=== PATIENT | male | born 1940 | race Caucasian/White ===

== ENCOUNTER 2018-08-30 13:09 | Outpatient (CLI) | payer MEDICARE ==
--- NOTE | 2018-08-30 15:23 | RAD ---
CHEST TWO VIEWS: History: Displacement of atrial pacemaker leads, T82.120A. Pacemaker not working correctly. FINDINGS: Heart size is within normal limits. The lungs are clear. No confluent pneumonia, overt edema, or pleu ral effusion. Stable biapical pleural thickening. Stable appearing left transvenous pacemaker. There is prominent motion artifact on the lateral view. IMPRESSION: No significant acute intrathoracic disease. Stable appearance from 05-27-18. POS: KARIS
== END 2018-08-30 13:10 | disposition home or self-care (01) ==
LOC: BICRAD 13:09
PROVIDERS: ATTEND Internal Medicine Cardiovascular Disease
DX: T82.120A Displacement of cardiac electrode, initial encounter (principal)
CPT/HCPCS: 71046

== ENCOUNTER 2018-08-31 08:11 | Day surgery (SDC) | payer MEDICARE ==
[2018-08-31 09:11] LABS: Hemoglobin 14.2 g/dL (14.0-18.0); Platelet Count 159 thou/uL (130-400)
[2018-08-31] MEDS ORDERED: Fentanyl 100 MCG/2 ML VIAL ONE (09:37)
[2018-08-31] MEDS ORDERED: Midazolam HCl 2 mg/2 ml Vial ONE (09:37)
[2018-08-31] MEDS ORDERED: CEFAZOLIN 1 GM VIAL ONE ×2 (09:44→09:45)
[2018-08-31] MEDS ORDERED: Gentamicin 80 MG/2 ML VIAL ONE (09:45)
--- NOTE | 2018-08-31 16:03 | EKG ---
Test Reason : POST PACEMAKER INSER Blood Pressure : / mmHG Vent. Rate : 063 BPM Atrial Rate : 063 BPM P-R Int : 178 ms QRS Dur : 152 ms QT Int : 472 ms P-R-T Axes : 062 -45 068 degrees QTc Int : 483 ms Electronic ventricular pacemaker No previous ECGs available Confirmed by DR. Mathieu OCONNELL MD ([id number]) on 08/31/2018 4:02:40 PM Referred By: HOLLY Confirmed By:DR. Mathieu OCONNELL MD
--- NOTE | 2018-08-31 20:59 | DIS ---
DATE OF ADMISSION: 08/31/2018 DATE OF DISCHARGE: 08/31/2018 ADMITTING DIAGNOSES: He was seen in the outpatient setting today to undergo a pacemaker lead revision. The admitting diagnosis was pacemaker lead malfunction. His other diagnosis include history of sick sinus syndrome for which he underwent pacemaker insertion in the past. He also has a history of hypertension, history of hyperlipidemia, history of coronary artery disease, bilateral carotid artery plaque. DISCHARGE DIAGNOSES: He was seen in the outpatient setting today to undergo a pacemaker lead revision. The admitting diagnosis was pacemaker lead malfunction. His other diagnosis include history of sick sinus syndrome for which he underwent pacemaker insertion in the past. He also has a history of hypertension, history of hyperlipidemia, history of coronary artery disease, bilateral carotid artery plaque. PROCEDURE: In the hospital include atrial lead revision. He is to follow up with me in 7 to 10 days in the office for wound check. He will continue his present medications which include: 1. Crestor 10 mg a day. 2. Norvasc 5 mg a day. 3. Aspirin 325 mg a day. 4. Toprol-XL 100 mg daily. 5. Losartan/hydrochlorothiazide 100/25 once a day. 6. Crestor 10 mg a day. HOSPITAL COURSE: This is a very pleasant 78-year-old gentleman, who underwent pacemaker insertion on 05/27/2018. On routine evaluation yesterday in the office, was found to have atrial lead malfunction. Chest x-ray indicated the atrial lead had fallen down into the right ventricle just at the level of tricuspid valve. He was advised to undergo pacemaker lead revision. This was performed today without difficulties or complications. The patient will be discharged home if remained stable. He was given 2 mg of IV Versed for the procedure. We will await for the anesthesia to reverse prior to sending the patient home. I will see him back in the office as noted in 7 to 10 days. Job ID: [id number]
--- NOTE | 2018-09-01 09:58 | CCL ---
CARDIOLOGY PROCEDURE NOTE: DATE OF PROCEDURE: 08/31/18 PROCEDURE: Pacemaker lead revision. INDICATION FOR PROCEDURE: 78-year-old gentleman who underwent pacemaker insertion due to sick sinus syndrome. He was implanted with the device on 05/27/18. On routine evaluation of the pacemaker yesterday, he was noted to have a problem of the atrial lead with oversensing. It was felt to be a pacemaker lead malfunction. Chest x -ray showed that the atrial lead had become dislodged and was lying just at the level of the tricuspi d valve. He was advised to undergo pacemaker lead revision. DESCRIPTION OF PROCEDURE: The patient was taken to the cardiac cardiac catheterization technician, where the procedure was performed today without diffic ulties or complications. The full dictated note is already in the chart. He was prepped and draped in the usual sterile fashion. The old pocket was opened using careful dissection. The atrial lead remov ed from the pacemaker generator and a J-wire was placed, and the lead was easily repositioned back in to the right atrium. Thresholds were obtained and found to have normal sensing and normal thresholds. The pacemaker lead was then reattached to the pacemaker. Also interrogated the ventricular lead, whi ch also was found to have normal sensing and normal thresholds. The pocket was then irrigated using c opious amounts of antibiotic solution. The pacemaker generator with the leads was then placed back in to the pocket and the pocket was closed in three layers after copious antibiotic solution had irrigat ed the pocket. There were no difficulties or complications encountered. The patient tolerated the pro cedure well. The same leads were used and the same generator was placed back into the pocket.
== END 2018-08-31 12:10 | disposition home or self-care (01) ==
LOC: CCL 08:11
PROVIDERS: ATTEND Internal Medicine Cardiovascular Disease
PROC: 02WA3MZ Revision of Cardiac Lead in Heart, Percutaneous Approach (ICD-10-PCS; principal; 2018-08-31)
DX: T82.120A Displacement of cardiac electrode, initial encounter (principal); I49.5 Sick sinus syndrome; I25.10 Atherosclerotic heart disease of native coronary artery without angina pectoris; I25.83 Coronary atherosclerosis due to lipid rich plaque; I65.23 Occlusion and stenosis of bilateral carotid arteries; M19.90 Unspecified osteoarthritis, unspecified site; E78.5 Hyperlipidemia, unspecified; I10 Essential (primary) hypertension; E78.2 Mixed hyperlipidemia; E66.9 Obesity, unspecified; Z68.35 Body mass index [BMI] 35.0-35.9, adult; Z87.891 Personal history of nicotine dependence; Z79.82 Long term (current) use of aspirin; Z79.899 Other long term (current) drug therapy; Z95.0 Presence of cardiac pacemaker
CPT/HCPCS: 33215; 85014; 85018; 85049; 93005; 93010; 99152; 99153; J0690; J1580; J2250; J3010

== ENCOUNTER 2019-05-03 06:00 | Day surgery (SDC) | payer MEDICARE ==
[2019-05-02 15:40] VITALS: BMI 34.9
[2019-05-03] MEDS ORDERED: Lidocaine 1% (PF) 30 ML VIAL ONE (06:53)
[2019-05-03 07:28] LABS: ALT (SGPT) 14 U/L (8-55); AST (SGOT) 20 U/L (5-34); Albumin 3.9 g/dL (3.4-4.8); Alkaline Phosphatase 67 U/L (40-110); Anion Gap 14 mmol/L (10-20); BUN (Urea Nitrogen) 34 mg/dL (8.4-25.7); Bilirubin, Total 0.6 mg/dL (0.2-1.2); Calc. Creatinine Clearance 56 mL/min (70-130); Calcium 9.1 mg/dL (7.8-10.44); Carbon Dioxide 23 mmol/L (23-31); Chloride 105 mmol/L (98-107); Estimated GFR-MDRD 38; Globulin 2.8 g/dL (2.4-3.5); Glucose 103 mg/dL (83-110); Potassium 3.8 mmol/L (3.5-5.1); Protein, Total 6.7 g/dL (5.8-8.1); Sodium 138 mmol/L (136-145)
[2019-05-03] MEDS ORDERED: Nitroglycerin 100MG/250ML BOT 250 ML ONE (07:37)
[2019-05-03] MEDS ORDERED: Heparin 10,000 UNITS/1 ML VIAL ONE (07:38)
[2019-05-03] MEDS ORDERED: Verapamil 5 MG/2 ML VIAL ONE (07:38)
[2019-05-03] MEDS ORDERED: Midazolam HCl 2 mg/2 ml Vial ONE (07:38)
[2019-05-03] MEDS ORDERED: Morphine 2 MG/ML SYRINGE ONE ×2 (08:57→09:32)
--- NOTE | 2019-05-03 20:05 | EKG ---
Test Reason : POST PTCA/STENTS X2 Blood Pressure : / mmHG Vent. Rate : 060 BPM Atrial Rate : 061 BPM P-R Int : 000 ms QRS Dur : 154 ms QT Int : 476 ms P-R-T Axes : 000 -48 084 degrees QTc Int : 476 ms AV sequential or dual chamber electronic pacemaker When compared with ECG of 31-AUG-2018 11:55, Vent. rate has decreased BY 3 BPM Confirmed by KOURTNEY KERR, SRaji ([id number]) on 05/03/2019 8:05:25 PM Referred By: HOLLY Confirmed By:DR. Mathieu OCONNELL MD
[2019-05-03] MEDS ORDERED: Iopamidol 370 76% 50 ML VIAL FS ONE (20:23)
[2019-05-03] MEDS ORDERED: Iopamidol 370 76% 100 ML VIAL ONE (20:23)
--- NOTE | 2019-05-03 22:50 | DIS ---
DATE OF ADMISSION: 05/03/2019 DATE OF DISCHARGE: 05/03/2019 INDICATION FOR PROCEDURE: 79-year-old gentleman, who was found to have known coronary artery disease. He, on a previous cardiac catheterization, was found to have severe stenosis of 90% in the left anterior descending artery with heavy calcifications. He also has history of chronic kidney disease. Creatinine was approaching 2 at the time of the cardiac catheterization. He was advised to undergo a staged procedure to the left anterior descending artery with angioplasty and stent placement. He was brought to the hospital in a fasting state. He was prepped and draped in sterile fashion. Using a right radial artery approach, 5-Swazi introducer sheath was placed into the right radial artery. This also would accommodate a 6-Swazi guide using a 6-Swazi FL 3.5 catheter. It was advanced to the ostia in the left main coronary artery. The patient was given 2500 units of heparin and the cocktail for the radial approach, also was given additional 4000 units of heparin for a total of 6500 units of heparin, ACT was over 250. Proceeded with the procedure. The guide catheter was placed using a floppy wire. This was passed down the distal left anterior descending artery, where we used in the end, a 2.5 x 12 mm balloon as well as a 2.5 mm stent to the distal left anterior descending artery, a 2.5 x 12 mm stent to the mid left anterior descending diagonal branch. The mid left anterior descending artery stent was dilated up to 2.88 mm and the distal stent was dilated up to 2.77 mm. There was no residual significant stenosis noted. He did have heavy calcifications, however. Otherwise, he did very well during the procedure and he will be discharged later today. DISCHARGE MEDICATIONS: His discharge medications will include: 1. Brilinta, which he was given during the procedure, 180 mg. He will be discharged on 90 mg b.i.d. 2. He will continue on his other medications which include aspirin. We will decrease this to 81 mg a day. 3. Amlodipine 5 mg a day. 4. Rosuvastatin 10 mg a day. 5. Toprol-XL 50 mg once a day. 6. once a day and other p.r.n. medications as needed. His other discharge diagnoses include osteoarthritis, obesity, chronic back pain, hyperlipidemia, hypertension, status post pacemaker insertion. He also has a history of bilateral carotid artery stenosis of less than 50%. His followup will be with me in approximately 1 month in the office. He will continue his routine follow up with the primary care physician. I will also obtain another repeat chem-7 for evaluation of his renal function in the next few days. Job ID: [id number]
== END 2019-05-03 15:01 | disposition home or self-care (01) ==
LOC: CCL 06:00
PROVIDERS: ATTEND Internal Medicine Cardiovascular Disease
PROC: 027135Z Dilation of Coronary Artery, Two Arteries with Two Drug-eluting Intraluminal Devices, Percutaneous Approach (ICD-10-PCS; principal; 2019-05-03)
DX: I25.10 Atherosclerotic heart disease of native coronary artery without angina pectoris (principal); I12.9 Hypertensive chronic kidney disease with stage 1 through stage 4 chronic kidney disease, or unspecified chronic kidney disease; N18.9 Chronic kidney disease, unspecified; E78.2 Mixed hyperlipidemia; M54.9 Dorsalgia, unspecified; G89.29 Other chronic pain; M19.90 Unspecified osteoarthritis, unspecified site; E66.9 Obesity, unspecified; Z79.82 Long term (current) use of aspirin; Z79.899 Other long term (current) drug therapy; Z87.891 Personal history of nicotine dependence; Z95.0 Presence of cardiac pacemaker; Z86.79 Personal history of other diseases of the circulatory system; Z68.35 Body mass index [BMI] 35.0-35.9, adult
CPT/HCPCS: 80053; 85347; 92928; 93005; 93798; 99152; 99153; C1769; C1874; C1887; C9600; J1644; J2001; J2250; J2270; Q9967

== ENCOUNTER 2020-11-05 16:53 | Outpatient (CLI) | payer MEDICARE ==
[2020-11-05 19:09] LABS: Hemoglobin 13.8 g/dL (13.5-17.5); Mean Corpuscular HGB CONC 31.9 g/dL (32.0-36.0); Mean Corpuscular Hemoglobin 29.4 pg (27.0-33.0); Mean Corpuscular Volume 92.3 fl (81.2-95.1); Mean Platelet Volume 10.4 fl (7.4-10.4); Platelet Count 223 10x3/uL (150-450); RBC Distribution Width 14.6 % (11.5-14.5); Red Blood Cell (RBC) Count 4.69 10x6/uL (4.32-5.72)
[2020-11-05 19:19] LABS: Anion Gap 13 mmol/L (10-20); BUN (Urea Nitrogen) 20 mg/dL (8.4-25.7); Calc. Creatinine Clearance 0 mL/min (70-130); Calcium 8.8 mg/dL (7.8-10.44); Carbon Dioxide 27 mmol/L (23-31); Chloride 106 mmol/L (98-107); Glucose 101 mg/dL (83-110); Potassium 4.2 mmol/L (3.5-5.1); Sodium 142 mmol/L (136-145)
[2020-11-06 02:03] LABS: SARS-CoV-2 PCR by NAA Not Detected (NotDetected)
== END 2020-11-05 16:54 | disposition home or self-care (01) ==
LOC: LABBT 16:53
PROVIDERS: ATTEND Thoracic Surgery (Cardiothoracic Vascular Surgery)
DX: Z01.818 Encounter for other preprocedural examination (principal); I65.21 Occlusion and stenosis of right carotid artery; Z20.822 Contact with and (suspected) exposure to COVID-19
CPT/HCPCS: 80048; 85027; 93005; U0003; U0005; 87635; 93010

== ENCOUNTER 2020-11-05 17:45 | Inpatient (IN) | payer MEDICARE ==
[2020-11-08] MEDS ORDERED: Protamine Sulfate 50 MG/5 ML VIAL ONE ×2 (06:31→06:38)
[2020-11-08] MEDS ORDERED: Heparin 5,000 UNITS/ML VIAL ONE (06:31)
[2020-11-08] MEDS ORDERED: Phenylephrine 10 MG/ML VIAL ONE (06:38)
[2020-11-08] MEDS ORDERED: Fentanyl 100 MCG/2 ML VIAL ONE (06:38)
[2020-11-08] MEDS ORDERED: Ketorolac Tromethamine 30 MG/ML VIAL ONE (07:41)
[2020-11-08] MEDS ORDERED: Glycopyrrolate 0.2 MG/ML 5 ML SYRINGE ONE (07:41)
[2020-11-08] MEDS ORDERED: Labetalol HCl 100 MG/20 ML VIAL ONE (07:41)
[2020-11-08] MEDS ORDERED: Lidocaine 1% PF 5 ML VIAL ONE (07:41)
[2020-11-08] MEDS ORDERED: Dexamethasone 20 MG/5 ML VIAL ONE (07:41)
[2020-11-08] MEDS ORDERED: Rocuronium Bromide 10 MG/ML (10ML VIAL) ONE (07:41)
[2020-11-08] MEDS ORDERED: PROPOFOL 200 MG/20 ML VIAL ONE (07:41)
[2020-11-08] MEDS ORDERED: Ondansetron PF 4 MG/2 ML Vial ONE (07:41)
[2020-11-08] MEDS ORDERED: Dexamethasone 4 mg/ml Vial ONE (07:48)
[2020-11-08] MEDS ORDERED: Bupivacaine PF 0.5% 30 ML VIAL ONE (07:48)
[2020-11-08] MEDS ORDERED: EPINEPHrine 1 MG/ML AMP ONE (07:48)
[2020-11-08] MEDS ORDERED: hydrALAZINE 20 MG/ML VIAL ONE (08:54)
[2020-11-08] MEDS ORDERED: Promethazine HCl 25 MG/ML VIAL IM PRN (09:05)
[2020-11-08] MEDS ORDERED: traMADol HCl 50 MG TAB PO PRN ×2 (09:05)
[2020-11-08] MEDS ORDERED: Ondansetron PF 4 MG/2 ML Vial IVP PRN (09:05)
[2020-11-08] MEDS ORDERED: Fentanyl 100 MCG/2 ML VIAL SLOW IVP PRN (09:05)
[2020-11-08] MEDS ORDERED: Nitroglycerin 50 MG/250 ML BOT 250 ML IVPB PRN (09:05)
[2020-11-08] MEDS ORDERED: Phenylephrine 40 MG in Sodium Chloride 0.9% 250 ML 246 ML IVPB PRN (09:05)
[2020-11-08] MEDS ORDERED: Acetaminophen 325 MG TAB PO PRN (09:05)
[2020-11-08] MEDS: CEFAZOLIN 2 GM in Premix Bag 1 BAG IVPB SCH ×2 (14:26→21:15)
[2020-11-08] MEDS: Sodium Chloride 0.9% 1,000 ML IV SCH ×2 (17:27→21:14)
[2020-11-08] MEDS: Furosemide 20 MG TAB PO SCH (17:27)
[2020-11-08] MEDS ORDERED: Rosuvastatin 10 MG TAB PO SCH (21:00)
[2020-11-09] MEDS: CEFAZOLIN 2 GM in Premix Bag 1 BAG IVPB SCH (06:05)
[2020-11-09] MEDS: Sodium Chloride 0.9% 1,000 ML IV SCH (06:06)
[2020-11-09 06:31] VITALS: BMI 23.6
[2020-11-09 08:00] VITALS: TEMP 97.4
[2020-11-09] MEDS: Furosemide 20 MG TAB PO SCH (08:43)
[2020-11-09] MEDS ORDERED: Trospium 20 MG TAB PO SCH (09:00)
[2020-11-09] MEDS ORDERED: Amlodipine 5 MG TAB PO SCH (21:00)
[2020-11-10] MEDS ORDERED: Potassium Chloride 20 MEQ TAB PO SCH (08:00)
== END 2020-11-09 11:00 | disposition home or self-care (01) | DRG 39 ==
LOC: SURG A 11-08 06:01 → CCU 11-08 13:30 → EDSTATUS 11-08 17:45
PROVIDERS: ADMIT Thoracic Surgery (Cardiothoracic Vascular Surgery); ATTEND Thoracic Surgery (Cardiothoracic Vascular Surgery)
PROC: 03CH0ZZ Extirpation of Matter from Right Common Carotid Artery, Open Approach (ICD-10-PCS; principal; 2020-11-08)
PROC: 03CK0ZZ Extirpation of Matter from Right Internal Carotid Artery, Open Approach (ICD-10-PCS; 2020-11-08)
PROC: 03UH0KZ Supplement Right Common Carotid Artery with Nonautologous Tissue Substitute, Open Approach (ICD-10-PCS; 2020-11-08)
PROC: 03UK0KZ Supplement Right Internal Carotid Artery with Nonautologous Tissue Substitute, Open Approach (ICD-10-PCS; 2020-11-08)
DX: I65.23 Occlusion and stenosis of bilateral carotid arteries (principal); I10 Essential (primary) hypertension; Z79.82 Long term (current) use of aspirin; Z85.46 Personal history of malignant neoplasm of prostate
CPT/HCPCS: 80048; 85027; 87635; 93005; 93010; 94640; J0171; J0360; J0690; J1100; J1642; J1644; J1885; J2370; J2405; J2704; J2720; J3010; J7620; S0020; U0003; U0005

== ENCOUNTER 2021-01-29 11:00 | Inpatient (IN) | payer MEDICARE ==
[2021-01-31] MEDS ORDERED: Protamine Sulfate 50 MG/5 ML VIAL ONE (06:39)
[2021-01-31] MEDS ORDERED: EPINEPHrine 1 MG/ML AMP ONE (06:39)
[2021-01-31] MEDS ORDERED: Dexamethasone 4 mg/ml Vial ONE (06:39)
[2021-01-31] MEDS ORDERED: Heparin 5,000 UNITS/ML VIAL ONE ×2 (06:39→11:34)
[2021-01-31] MEDS ORDERED: Bupivacaine PF 0.5% 30 ML VIAL ONE (06:39)
[2021-01-31] MEDS ORDERED: Rocuronium Bromide 10 MG/ML (10ML VIAL) ONE (07:18)
[2021-01-31] MEDS ORDERED: PROPOFOL 200 MG/20 ML VIAL ONE (07:18)
[2021-01-31] MEDS ORDERED: Fentanyl 100 MCG/2 ML VIAL ONE (07:23)
[2021-01-31] MEDS ORDERED: Heparin 5,000 UNITS/ML VIAL SLOW IVP SCH (11:45)
[2021-01-31] MEDS: Sodium Chloride 0.9% 1,000 ML IV SCH (12:00)
[2021-01-31] MEDS ORDERED: Fentanyl 100 MCG/2 ML VIAL SLOW IVP PRN (15:33)
[2021-01-31] MEDS ORDERED: Phenylephrine 40 MG in Sodium Chloride 0.9% 250 ML 250 ML IVPB PRN (15:33)
[2021-01-31] MEDS ORDERED: Ondansetron PF 4 MG/2 ML Vial IVP PRN (15:33)
[2021-01-31] MEDS ORDERED: hydrALAZINE 20 MG/ML VIAL SLOW IVP PRN (15:33)
[2021-01-31] MEDS ORDERED: traMADol HCl 50 MG TAB PO PRN ×2 (15:33)
[2021-01-31] MEDS ORDERED: Acetaminophen 325 MG TAB PO PRN (15:33)
[2021-01-31] MEDS: CEFAZOLIN 2 GM in Premix Bag 1 BAG IVPB SCH (16:50)
[2021-01-31] MEDS: Amlodipine 5 MG TAB PO SCH (21:26)
[2021-01-31] MEDS: Trospium 20 MG TAB PO SCH (21:26)
[2021-01-31] MEDS: Rosuvastatin 10 MG TAB PO SCH (21:27)
[2021-01-31 21:51] VITALS: BMI 31.8
[2021-01-31] MEDS: Aspirin 81 mg Enteric Coated Tablet PO SCH (23:59)
[2021-01-31] MEDS ORDERED: Clopidogrel Bisulfate 75 MG TAB PO SCH (23:59)
[2021-02-01] MEDS: CEFAZOLIN 2 GM in Premix Bag 1 BAG IVPB SCH ×2 (01:42→09:59)
[2021-02-01] MEDS: Sodium Chloride 0.9% 1,000 ML IV SCH ×3 (03:44→23:20)
[2021-02-01] MEDS: Potassium Chloride 20 MEQ TAB PO SCH (10:01)
[2021-02-01] MEDS: Clopidogrel Bisulfate 75 MG TAB PO SCH (10:01)
[2021-02-01] MEDS: Furosemide 20 MG TAB PO SCH ×2 (10:13→11:06)
[2021-02-01] MEDS: Trospium 20 MG TAB PO SCH ×2 (11:02→20:12)
[2021-02-01] MEDS: Rosuvastatin 10 MG TAB PO SCH (20:11)
[2021-02-01] MEDS: Amlodipine 5 MG TAB PO SCH (20:11)
[2021-02-02 07:53] VITALS: BP 150/81; TEMP 98.1
[2021-02-02] MEDS: Trospium 20 MG TAB PO SCH (07:54)
[2021-02-02] MEDS: Clopidogrel Bisulfate 75 MG TAB PO SCH (07:54)
[2021-02-02] MEDS: Aspirin 81 mg Enteric Coated Tablet PO SCH (07:54)
[2021-02-02] MEDS: Potassium Chloride 20 MEQ TAB PO SCH (07:54)
[2021-02-02] MEDS: Furosemide 20 MG TAB PO SCH (07:54)
[2021-02-02] MEDS: Sodium Chloride 0.9% 1,000 ML IV SCH (11:10)
[2021-02-05 14:51] LABS: Actual Bicarbonate (HCO3a) 23.5 mEq/L (22-28); Analyzer IN Cardio OR; Base Excess (BEa) -0.6 mEq/L (-2.0 to +3.0); Calcium, Ionized (arterial) 1.11 mmol/L (1.12-1.30); Carboxyhemoglobin (COHb) 0.4 gm% (0.0-3.0); Hemoglobin (Hb) 12.6 g/dL (14.0-18.0); O2 Tension (PaO2), arterial 470.3 mmHg (> 60.0); Potassium - ABG Lab 3.68 mmol/L (3.70-5.30); Puncture Site Arterial Line; pH, Arterial 7.42 (7.35-7.45)
== END 2021-02-02 11:46 | disposition home or self-care (01) | DRG 38 ==
LOC: SURG A 01-31 06:02 → EDSTATUS 01-31 11:00 → CCU 01-31 18:42 → 2SE 02-01 15:01
PROVIDERS: ADMIT Thoracic Surgery (Cardiothoracic Vascular Surgery); ATTEND Thoracic Surgery (Cardiothoracic Vascular Surgery)
PROC: 03CL0ZZ Extirpation of Matter from Left Internal Carotid Artery, Open Approach (ICD-10-PCS; principal; 2021-01-31)
PROC: 03UL0KZ Supplement Left Internal Carotid Artery with Nonautologous Tissue Substitute, Open Approach (ICD-10-PCS; 2021-01-31)
DX: I65.22 Occlusion and stenosis of left carotid artery (principal); T81.718A Complication of other artery following a procedure, not elsewhere classified, initial encounter; I74.2 Embolism and thrombosis of arteries of the upper extremities; I10 Essential (primary) hypertension; Z85.46 Personal history of malignant neoplasm of prostate; Z87.891 Personal history of nicotine dependence; Z79.899 Other long term (current) drug therapy; Z79.82 Long term (current) use of aspirin; Y83.8 Other surgical procedures as the cause of abnormal reaction of the patient, or of later complication, without mention of misadventure at the time of the procedure
CPT/HCPCS: 36415; 70496; 70498; 82805; 86850; 86900; 86901; 94640; J0171; J0360; J0690; J1100; J1642; J1644; J2704; J2720; J3010; J7620; S0020